=== PATIENT | male | born 2000 | race Caucasian/White ===

== ENCOUNTER 2019-01-22 13:58 | Emergency (ER) | payer MEDICAID ==
[~2019-01-22] VITALS: Ht 172.7 cm; Wt 79.1 kg
[2019-01-22 14:00] VITALS: Ht 172.7 cm; Wt 79.1 kg
[2019-01-22 16:03] VITALS: BP 140/74
== END 2019-01-22 16:03 | disposition home or self-care (01) ==
LOC: ED 13:58
DX: S76.111A Strain of right quadriceps muscle, fascia and tendon, initial encounter (principal); X58.XXXA Exposure to other specified factors, initial encounter; Y93.89 Activity, other specified; Y92.89 Other specified places as the place of occurrence of the external cause; Y99.8 Other external cause status